=== PATIENT | female | born 1965 | race Caucasian/White ===

== ENCOUNTER 2016-04-16 00:40 | Emergency (ER) | payer BC ==
[~2016-04-16] VITALS: Ht 165.1 cm; Wt 65.8 kg
[2016-04-16 00:43] VITALS: BP 137/79
== END 2016-04-16 01:33 | disposition home or self-care (01) ==
LOC: ER 00:43
DX: F10.129 Alcohol abuse with intoxication, unspecified (principal); F32.9 Major depressive disorder, single episode, unspecified; F41.9 Anxiety disorder, unspecified; I10 Essential (primary) hypertension
CPT/HCPCS: 99283; A4606; Z7610